=== PATIENT | male | born 1940 | race Caucasian/White ===

== ENCOUNTER → 2023-09-14 09:33 | Outpatient (REF) | payer OTHER, SELFPAY | LOC: HWRAD 09:33 | PROVIDERS: ATTENDING PHYSICIAN Physician Assistant | DX: M54.50 Low back pain, unspecified (principal) | CPT/HCPCS: 72110 ==

== ENCOUNTER → 2023-10-31 10:22 | Outpatient (REF) | payer OTHER, SELFPAY | LOC: HWRCS 10:22 | PROVIDERS: ATTENDING PHYSICIAN Internal Medicine Cardiovascular Disease; FAMILY PHYSICIAN Physician Assistant Medical | DX: I48.19 Other persistent atrial fibrillation (principal); I34.0 Nonrheumatic mitral (valve) insufficiency | CPT/HCPCS: 93306 ==

== ENCOUNTER → 2024-03-26 09:16 | Outpatient (REF) | payer OTHER, SELFPAY | LOC: RAD 09:16 | PROVIDERS: ATTENDING PHYSICIAN Physician Assistant Medical | DX: M25.551 Pain in right hip (principal); M54.50 Low back pain, unspecified | CPT/HCPCS: 72110; 73523 ==

== ENCOUNTER → 2024-05-09 14:38 | Outpatient (REF) | payer OTHER, SELFPAY | LOC: HWRAD 14:38 | PROVIDERS: ATTENDING PHYSICIAN Physician Assistant Medical | DX: S32.050D Wedge compression fracture of fifth lumbar vertebra, subsequent encounter for fracture with routine healing (principal) | CPT/HCPCS: 77080 ==

== ENCOUNTER → 2024-11-12 14:55 | Outpatient (REF) | payer OTHER, SELFPAY | LOC: RAD 14:55 | PROVIDERS: ATTENDING PHYSICIAN Physician Assistant; FAMILY PHYSICIAN Physician Assistant Medical | DX: R33.9 Retention of urine, unspecified (principal) | CPT/HCPCS: 76770 ==

== ENCOUNTER → 2024-12-19 17:10 | Outpatient (REF) | payer OTHER, SELFPAY | LOC: RAD 17:10 | PROVIDERS: ATTENDING PHYSICIAN Physician Assistant; FAMILY PHYSICIAN Physician Assistant Medical | DX: M25.551 Pain in right hip (principal); M54.50 Low back pain, unspecified | CPT/HCPCS: 72110; 73502 ==

== ENCOUNTER 2024-12-21 14:26 | Emergency (ER) | payer OTHER, SELFPAY ==
[2024-12-21 14:30] VITALS: BP 147/83
[2024-12-21 15:01] VITALS: BP 126/79; BMI 29.8
--- NOTE | 2024-12-21 15:03 | ED.GENMED ---
History of Present Illness
General
Chief Complaint: Musculo-Skeletal Complaint
Time Seen by Provider: 12/21/24 14:51
History of Present Illness
History of Present Illness:
84-year-old male with history of persistent A-fib on Xarelto and sotalol, mitral regurgitation, and coronary artery disease presents to the emergency department for evaluation of worsening right-sided low back pain radiating to the right leg
worsening yesterday. Had outpatient images performed 2 days ago showing degenerative changes of the lumbar spine as well as the hip. He is able to ambulate under his own power with significant pain. He has been taking NSAIDs without relief.
Denies any recent falls or trauma. Denies any lower urinary tract voiding symptoms
Review of Systems
Review of Systems
Allergies reviewed?: Yes
All Other Systems: ROS reviewed and negative except as documented in HPI and ROS
Phy Exam
Physical Exam
Physical Exam:
GEN: Well appearing, NAD, WDWN
HEENT: Oral mucosa moist, no scleral icterus
Cardiac: Regular rate
Lung: No respiratory distress, no tachypnea
MSK: No gross deformity or injuries. Normal range of motion of the right hip however pain is obviously increased with hip flexion and extension, no pain with internal/external rotation. No tenderness to the lumbar spine
Skin: Good color, no pallor or jaundice, no rashes
Neuro: AO x3, moves all extremities freely
Psych: Calm, cooperative
Course
Orders/Labs/Results
Orders:
Orders
12/21/24 15:02
Acetaminophen [Tylenol] 1,000 mg PO NOW STA
Oxycodone [Roxicodone] 5 mg PO NOW STA
12/21/24 16:33
Prednisone [Deltasone] 40 mg PO NOW STA
Vital Signs
Initial and Last Documented VS:
Initial Vital Signs
Temp Pulse Resp BP Pulse Ox
98.0 F 90 16 147/83 98
12/21/24 14:30 12/21/24 14:30 12/21/24 14:30 12/21/24 14:30 12/21/24 14:30
Last Documented Vital Signs
Temp Pulse Resp BP Pulse Ox
98.4 F 71 12 114/77 95
12/21/24 15:01 12/21/24 16:16 12/21/24 16:16 12/21/24 16:16 12/21/24 16:16
MDM/Problems Addressed
MDM/Problems Addressed:
84-year-old male presents with worsening low back pain. This is most likely lumbar radiculopathy based on his lack of pain with improving motion and radicular pattern. He is anticoagulated thus cannot use NSAIDs, will prescribe course of
corticosteroids opiate analgesics, recommend outpatient orthopedic/spine follow-up
*Pulse Oximetry
SaO2: 98
Oxygen Mode of Delivery: Room air
Patient hypoxic: no
*Critical Care Note
Total Time (30-74mins, 75-104mins- exclusive of procedures): Not Applicable
ED Attending Note
-
Portions of this chart may have been created with voice recognition software.� Occasional wrong word or��sound alike� substitutions may have occurred due to the inherent limitations of voice recognition software.
Discharge Plan
Departure
Patient Disposition: Home (Routine Discharge)
Date of Disposition: 12/21/24
Time of Disposition: 16:30
Patient with high blood pressure during this ER visit?: No
Discharge Problem:
Lumbar radiculopathy
Instructions: Radiculopathy of the neck and back (including sciatica) (DC)
Prescriptions:
New
oxycodone 5 mg tablet
5 mg PO Q8H PRN (Reason: Pain) Qty: 10 0RF
methylprednisolone [Medrol (Morgan)] 4 mg tablets,dose pack
See Rx Instructions .ROUTE .COMPLEX Qty: 21 0RF
Rx Instructions:
orally per package directions
No Action
sotalol 80 MG tablet
80 mg PO Q12H Qty: 60 2RF
Xarelto 20 MG tablet
20 mg PO QPM 0RF
pantoprazole [Protonix] 40 mg tablet,delayed release (DR/EC)
40 mg PO DAILY Qty: 14 0RF
Referrals:
UNKNOWN - PT DOES,NOT KNOW [Unknown Provider]
Interventions
Interventions:
*Risk Screen - Suicide Last Done: 12/21/24 15:15
*General Assessment Last Done: 12/21/24 15:08
*Neglect/Abuse Screening Last Done: 12/21/24 14:30
*ED- Fall Risk Assessment Last Done: 12/21/24 15:08
*ED COVID-19 Vaccine History Last Done: 12/21/24 15:08
*ED Influenza Vaccine History Last Done: 12/21/24 15:08
*Nursing Disposition Last Done: 12/21/24 16:48
ED-Musculoskeletal Assessment Last Done: 12/21/24 15:15
Discharge Date and Time
Discharge Date/Time: 12/21/24 16:48
Print Language: [place]
[2024-12-21] MEDS: TYLENOL 1000 MG PO (15:35)
[2024-12-21] MEDS: ROXICODONE 5 MG PO (15:37)
[2024-12-21 16:16] VITALS: BP 114/77
[2024-12-21] MEDS: DELTASONE 40 MG PO (16:39)
== END 2024-12-21 16:48 | disposition home or self-care (01) ==
LOC: EMR 14:26
PROVIDERS: EMERGENCY PHYSICIAN Emergency Medicine; FAMILY PHYSICIAN Physician Assistant
DX: M54.16 Radiculopathy, lumbar region (principal); I48.19 Other persistent atrial fibrillation; I25.10 Atherosclerotic heart disease of native coronary artery without angina pectoris; I34.0 Nonrheumatic mitral (valve) insufficiency; M47.816 Spondylosis without myelopathy or radiculopathy, lumbar region; M16.10 Unilateral primary osteoarthritis, unspecified hip; Z79.01 Long term (current) use of anticoagulants
CPT/HCPCS: 99283